=== PATIENT | male | born 1955 | race Two or more races ===

== ENCOUNTER 2019-09-10 09:55 | Outpatient (CLI) | payer OTHER | END 2019-09-10 12:32 | disposition home or self-care (01) | LOC: OFIC 805 09:55 | PROVIDERS: ATTEND Otolaryngology | DX: J32.0 Chronic maxillary sinusitis (principal); K08.89 Other specified disorders of teeth and supporting structures ==

== ENCOUNTER 2019-10-09 09:21 | Outpatient (CLI) | payer OTHER | END 2019-10-09 17:06 | disposition home or self-care (01) | LOC: OFIC 805 09:21 | PROVIDERS: ATTEND Otolaryngology | DX: J32.0 Chronic maxillary sinusitis (principal); K08.89 Other specified disorders of teeth and supporting structures ==